=== PATIENT | male | born 1985 | race Caucasian/White ===

== ENCOUNTER 2023-08-11 19:55 | Emergency (ER) | payer MEDICAID ==
[~2023-08-11] VITALS: Ht 185.4 cm; Wt 136.0 kg
[2023-08-11 20:11] VITALS: BP 160/102; PULSE 100; RESP 16; TEMP 98.1; O2SAT 100
[2023-08-11] MEDS ORDERED: ACETAMINOPHEN 500MG TABLET PO ONE (21:00)
== END 2023-08-11 22:17 | disposition left against medical advice (07) ==
LOC: ER 19:55
DX: S00.83XA Contusion of other part of head, initial encounter (principal); J45.909 Unspecified asthma, uncomplicated; X58.XXXA Exposure to other specified factors, initial encounter; Y93.89 Activity, other specified; Y92.89 Other specified places as the place of occurrence of the external cause; Y99.8 Other external cause status
CPT/HCPCS: 70486; 71045; 99284